=== PATIENT | male | born 1950 | race Caucasian/White ===

== ENCOUNTER 2025-02-09 09:17 | Day surgery (SDC) | payer OTHER ==
[2025-02-09] VITALS (14 sets, daily range): BP systolic 100–154; BP diastolic 67–83
[~2025-02-09] VITALS: Ht 175.3 cm; Wt 83.6 kg
[~2025-02-09 09:17] MED LIST: ATOR10; CYCL10 PO; HYDR1TAB94 PO; LEVOTHYROXINE PO; MULVITA; OXYACE5T PO; PRAVASTATIN PO; PROM25 PO
--- NOTE | 2025-02-09 10:02 | NUR ---
Patient confirms NPO status and agrees with scheduled surgery. Patient States Post-Procedure ride home has been arranged. Patient states colon prep results clear.Lungs clear T/O to Auscultation.
--- NOTE | 2025-02-09 10:45 | NUR ---
02/09/25 1045 Polly Hereida CONFIRMED AND REVIEWED H&P, MEDCICATIONS, ALLERGIES, MEDICAL HISTORY, RESPIRATORY HISTORY, VITAL SIGNS, 3-LEAD EKG, CONSENTS, AND PHYSICIAN ORDERS. PATIENT CONFIRMS NPO STATUS AND AGREES WITH SCHEDULED PROCEDURE. MONITOR INTACT WITH CONTINUOUS PULSE OXIMETRY, CAPNOGRAPHY, 3-LEAD EKG, INTERMITTENT BP. SUPPLEMENTAL O2 TO BE TITRATED THROUGHOUT PROCEDURE TO MAINTAIN O2 SATURATION ABOVE 90%. PATIENT DETERMINED TO BE ASA APPROPRIATE FOR PROPOFOL SEDATION PRIOR TO START OF PROCEDURE BY DR. GRIMM
== END 2025-02-09 23:00 | disposition home or self-care (01) ==
LOC: ORSCMMR 09:17 → ORD 10:30 → ORSCMMR 10:30
PROVIDERS: Internal Medicine Gastroenterology
PROC: 0DBK8ZX Excision of Ascending Colon, Via Natural or Artificial Opening Endoscopic, Diagnostic (ICD-10-PCS; principal; 2025-02-09 10:30)
PROC: 0DBN8ZX Excision of Sigmoid Colon, Via Natural or Artificial Opening Endoscopic, Diagnostic (ICD-10-PCS; principal; 2025-02-09 10:30)
DX: Z12.11 Encounter for screening for malignant neoplasm of colon (principal); D12.5 Benign neoplasm of sigmoid colon; K63.5 Polyp of colon; R19.5 Other fecal abnormalities; E03.9 Hypothyroidism, unspecified; E78.00 Pure hypercholesterolemia, unspecified; Z79.899 Other long term (current) drug therapy
CPT/HCPCS: 88305; J2704; J7120